=== PATIENT | male | born 1995 | race Caucasian/White ===

== ENCOUNTER 2023-01-26 11:32 | Outpatient (CLI) | payer BC, SELFPAY | END 2023-01-26 11:33 | disposition home or self-care (01) | PROVIDERS: PCP Internal Medicine; Visit Provider Internal Medicine | DX: Z13.6 Encounter for screening for cardiovascular disorders (principal); Z13.1 Encounter for screening for diabetes mellitus | CPT/HCPCS: 80061; 82947 ==